=== PATIENT | male | born 1995 | race African-American/Black ===

== ENCOUNTER 2018-08-07 17:33 | Emergency (ER) | payer SELFPAY ==
[~2018-08-07] VITALS: Ht 177.8 cm; Wt 65.8 kg
[~2018-08-07 17:33] MED LIST: ACETAMINOPHEN-1 EAC1 ORAL; AMOXIL250 MG ORAL; IBUPROFEN600 MG ORAL; PENICILLIN V P500 MG PO
[2018-08-07] MEDS ORDERED: NKM (17:47)
--- NOTE | 2018-08-07 17:51 | NUR ---
ED Nurse Note: Pt came into the eR w/ complaints of cough x 3 days. Pt is also having congestion. A + O x4. Ambulatory. Skin warm to touch. No complaints of pain.
[2018-08-07 17:52] VITALS: BP 115/77
[2018-08-07] MEDS ORDERED: TESSALON PERLE100 MG ORAL (18:04)
[2018-08-07] MEDS ORDERED: SUDAFED PE PRE1 EAC3 PO (18:04)
[2018-08-07] MEDS ORDERED: FLUTICASONE PRO16 G1 NASAL (18:04)
[2018-08-07] MEDS ORDERED: ALBUTEROL SULF8.5 GM INH (18:04)
--- NOTE | 2018-08-07 18:05 | Emergency Room Report ---
History of Present Illness General Chief Complaint: Upper Respiratory Illness Source: Patient Present Illness HPI 23-year-old male patient presents the ER complaining of cough and congestion for the past 4 days. Reports cough with sputum. Denies hemoptysis. Denies recent travel outside the country. Denies shortness of breath or chest pain. Denies history of heart disease. Reports history of asthma, states she is a breathing treatment earlier in the week however did not help with her and states his been taking [id number]-[id number] Robitussin. Denies fever. Denies sore throat or chest pain. Denies vomiting or diarrhea. States not receive flu vaccine this year. Denies other aggravating or relieving factors. Patient is requesting refill of albuterol inhaler medication. Reports history of smoking marijuana, denies history of smoking cigarettes. Allergies: Coded Allergies: No Known Allergies (Unverified , 02/08/12) Patient History Past Medical History: see triage record Reviewed Nursing Documentation: PMH: Agreed; PSxH: Agreed Nursing Documentation-PMH Past Medical History: No History, Except For Hx Asthma: Yes Review of Systems All Other Systems: negative except mentioned in HPI Physical Exam Vital Signs Date Time Temp Pulse Resp B/P (MAP) Pulse Ox O2 Delivery O2 Flow Rate FiO2 08/07/18 17:43 98.2 56 17 113/73 99 Room Air 08/07/18 17:52 98 Sp02 EP Interpretation: reviewed, normal General Appearance: well appearing, no apparent distress, alert, GCS 15, non- toxic Head: normocephalic, atraumatic Eyes: bilateral eye normal inspection, bilateral eye PERRL ENT: hearing grossly normal, normal pharynx, no angioedema, normal voice, TMs + canals normal, uvula midline, moist mucus membranes, nasal congestion Neck: full range of motion, no meningismus, no bony tend Respiratory: lungs clear, normal breath sounds, no rhonchi, no respiratory distress, no accessory muscle use, no wheezing, speaking full sentences Cardiovascular #1: regular rate, rhythm, no edema Musculoskeletal: back normal, digits/nails normal, gait/station normal, normal range of motion, non-tender Neurologic: alert, oriented x3, responsive, motor strength/tone normal, sensory intact Psychiatric: mood/affect normal Skin: no rash Medical Decision Making PA Attestation Dr. Brito is my supervising Physician whom patient management has been discussed with. Diagnostic Impression: Primary Impression: Upper respiratory infection ER Course Pt presents to ED c/o cough and congestion. DDX considered but are not limited to influenza, viral URI, pneumonia, strep throat, rhinitis, sinusitis, otitis media, otitis externa, sinusitis. VITAL SIGNS are WNL, patient is afebrile. ER COURSE: Lungs clear to auscultation, no wheezes, rhonci or rales. patient afebrile. Does not require breathing treatment in the ER currently. Low suspicion for pneumonia, will not order CXR at this time. no tonsillar exudates, no pharyngeal erythema, history of cough, no fever, no stridor, uvula midline, low suspicion for peritonsillar abscess. Likely viral etiology of symptoms. Symptomatic treatment. drink plenty of fluids. Salt water gargles for sore throat. Followup with PCP for further treatment and/or referral as needed.' ER precautions given. Will provide refill of albuterol medication. DISCHARGE: At this time pt is stable for d/c to home. Patient is resting comfortably, in no acute distress, nontoxic appearing. Patient to take medications as instructed Will provide with patient care instructions and any necessary prescriptions. Care plan and follow-up instructions provided. Patient instructed to follow-up with primary care provider in 3 - 5 days. Patient questions asked and answered. Patient reports understanding and agreement to treatment plan. ER precautions given. Patient instructed to return to ER immediately for any new or worsening of symptoms including but not limited to increasing SOB, persistent fever, intractable vomiting. - Please note that this Emergency Department Report was dictated using [id number] laboratory technology software, occasionally this can lead to erroneous entry secondary to interpretation by the dictation equipment. Last Vital Signs Date Time Temp Pulse Resp B/P (MAP) Pulse Ox O2 Delivery O2 Flow Rate FiO2 08/07/18 17:52 98.0 78 20 115/77 99 Room Air 08/07/18 17:52 98 Status: improved Disposition: HOME, SELF-CARE Condition: Stable Scripts Guaifen/Phenyleph/Acetaminophn (Sudafed PE Pressure+Pain+Mucus) 1 Each Tablet 1 EACH PO TID, #24 TAB Prov: Mateo Alonso 08/07/18 Fluticasone Propionate* (FLUTICASONE PROPIONATE*) 16 Gm [place].susp 1 SPRAY NASAL TWICE A DAY, #16 GM Prov: Mateo Alonso 08/07/18 Benzonatate* (TESSALON PERLE*) 100 Mg Capsule 100 MG ORAL THREE TIMES A DAY, #30 PERLE Prov: Mateo Alonso 08/07/18 Albuterol Sulfate* (ALBUTEROL SULFATE MDI*) 8.5 Gm Hfa.aer.ad 2 PUFF INH Q6H, #1 INH 0 Refills Prov: Mateo Alonso 08/07/18 Patient Instructions: Upper Respiratory Infection, Adult Additional Instructions: Followup with primary care provider in 3 -5 days. Drink plenty fluids. Advised that smoking may exacerbate cough symptoms. Take Tylenol or Motrin for pain and fever symptoms. Take medications as directed. Patient questions asked and answered. ER precautions given, patient instructed to return to ER immediately for any new or worsening of symptoms. Mateo Alonso Aug 07, 2018 18:05
[2018-08-07 18:11] VITALS: BP 108/65
--- NOTE | 2018-08-07 18:12 | NUR ---
ER DISCHARGE NOTE: Patient is cleared to be discharged per ERMD, pt is aox4, on room air, with stable vital signs. pt was given dc and prescription instructions, pt was able to verbalize understanding, pt id band removed without complications. pt is able to ambulate with steady gait. pt took all belongings.
== END 2018-08-07 18:12 | disposition home or self-care (01) ==
LOC: EMR 18:03
DX: J06.9 Acute upper respiratory infection, unspecified (principal); J45.909 Unspecified asthma, uncomplicated
CPT/HCPCS: 99282